=== PATIENT | female | born 1980 | race Caucasian/White ===

== ENCOUNTER 2020-04-12 10:12 | Outpatient (REF) | payer OTHER, SELFPAY | END 2020-04-12 10:13 | disposition home or self-care (01) | LOC: HO.LAB 10:12 | PROVIDERS: Visit Provider Obstetrics & Gynecology | DX: N92.0 Excessive and frequent menstruation with regular cycle (principal) | CPT/HCPCS: 58100; 88305 ==

== ENCOUNTER → 2020-05-02 15:12 | Outpatient (BNVA) | payer OTHER, SELFPAY | PROVIDERS: Visit Provider Obstetrics & Gynecology | DX: Z76.89 Persons encountering health services in other specified circumstances (principal) ==

== ENCOUNTER 2020-05-15 15:15 | Outpatient (REF) | payer OTHER, SELFPAY ==
--- NOTE | 2020-05-15 15:21 | XR_ITS ---
EXAMINATION: XR SACRUM AND COCCYX CLINICAL INFORMATION: Sacrococcygeal disorder COMPARISON: None TECHNIQUE: 2 views of the sacrum and 2 views of the coccyx were obtained. FINDINGS: Bone alignment is normal. No fracture or dislocation is seen. The sacroiliac joints are normal. There are surgical clips in the pelvis. XR/XR sacrum coccyx min 2V IMPRESSION: Unremarkable examination.
[2020-05-15 16:40] LABS: MANUAL DIFF FLAG NO
[2020-05-15 16:44] LABS: Basophils Percent Auto 0.5 % (0-2); Eosinophils Absolute Auto 0.2 X10*3/uL (0.0-0.4); Hemoglobin 14.1 g/dl (12.0-16.0); Imm Gran Abs Auto 0.03 X10*3/uL (0.00-0.03); Imm Gran Pct Auto 0.4 % (0.0-0.4); Lymphocytes Percent Auto 39.5 % (20-40); Mean Corpuscular HGB Conc 33.6 g/dl (31.0-35.0); Mean Corpuscular Hemoglobin 31.5 pg (27.0-33.0); Mean Corpuscular Volume 93.8 fL (80-98); Mean Platelet Volume 10.9 fL (9.4-12.3); Monocytes Absolute Auto 0.5 X10*3/uL (0.1-1.2); Monocytes Percent Auto 6.2 % (2-11); Neutrophils Absolute Auto 3.9 X10*3/uL (2.0-8.3); Neutrophils Percent Auto 51.4 % (45-73); Platelet Count 217 X10*3/uL (160-400); Red Blood Count 4.48 X10*6/uL (4.20-5.50); Red Cell Distribution Width 12.7 % (11.0-16.0); White Blood Count 7.6 X10*3/uL (4.8-10.8)
[2020-05-15 17:13] LABS: Anion Gap 12 (12-20); Blood Urea Nitrogen 9 mg/dL (9-16); Calcium 8.7 mg/dL (8.4-10.2); Carbon Dioxide 30 mmol/L (22-29); Chloride 100 mmol/L (96-108); Cholesterol 171 mg/dL; Estimated Glomerular Filt Rate > 60; Glucose Fasting 94 mg/dL (60-99); HDL Cholesterol 79 mg/dL; LDL Cholesterol Calculated 78 mg/dl; Potassium 4.4 mmol/l (3.3-5.1); Sodium 138 mmol/L (135-145); Triglycerides 70 mg/dL
[2020-05-15 17:33] LABS: TSH reflex Free T4 3.75 mIU/mL (0.32-4.0)
== END 2020-05-15 15:16 | disposition home or self-care (01) ==
LOC: HO.HMGCX 15:15
PROVIDERS: PCP Internal Medicine; Visit Provider Internal Medicine
DX: Z00.01 Encounter for general adult medical examination with abnormal findings (principal); R94.5 Abnormal results of liver function studies; R03.0 Elevated blood-pressure reading, without diagnosis of hypertension; M53.3 Sacrococcygeal disorders, not elsewhere classified
CPT/HCPCS: 36415; 72220; 80048; 80061; 84443; 85025

== ENCOUNTER 2020-05-29 13:16 | Outpatient (REF) | payer OTHER, SELFPAY ==
--- NOTE | 2020-05-29 13:24 | US_ITS ---
EXAMINATION: US PELVIS COMPLETE CLINICAL INFORMATION: Ovarian cyst, menorrhagia. COMPARISON: Ultrasound pelvis 11/22/2019. TECHNIQUE: Transabdominal and transvaginal ultrasound pelvis is performed. FINDINGS: The uterus is anteverted measuring 6.1 cm in length, 3.8 cm in AP and 4.9 cm in transverse dimension. Endometrial thickness is 0.8 cm. There is a hypoechoic lesion in the right body of the uterus measuring 1.4 x 1.0 x 1.3 cm. Previously it measured 1.5 x 1.3 x 1.5 cm. No additional lesions seen. Right ovary measures 2.4 x 1.5 x 1.6 cm and volume 3.0 mL. Previously it measured 3.1 x 2.4 x 2.1 cm and volume 8.2 mL. Left ovary measures 2.9 x 2.2 x 2.2 cm and volume 7.4 mL. There is a simple cyst measuring 2.5 x 1.7 x 1.8 cm. There is no free fluid in the cul-de-sac. US/US pelvic complete IMPRESSION: Simple cyst left ovary. Stable solitary uterine fibroid. Right ovary is unremarkable.
--- NOTE | 2020-05-29 13:24 | US_ITS ---
EXAMINATION: US PELVIS COMPLETE CLINICAL INFORMATION: Ovarian cyst, menorrhagia. COMPARISON: Ultrasound pelvis 11/22/2019. TECHNIQUE: Transabdominal and transvaginal ultrasound pelvis is performed. FINDINGS: The uterus is anteverted measuring 6.1 cm in length, 3.8 cm in AP and 4.9 cm in transverse dimension. Endometrial thickness is 0.8 cm. There is a hypoechoic lesion in the right body of the uterus measuring 1.4 x 1.0 x 1.3 cm. Previously it measured 1.5 x 1.3 x 1.5 cm. No additional lesions seen. Right ovary measures 2.4 x 1.5 x 1.6 cm and volume 3.0 mL. Previously it measured 3.1 x 2.4 x 2.1 cm and volume 8.2 mL. Left ovary measures 2.9 x 2.2 x 2.2 cm and volume 7.4 mL. There is a simple cyst measuring 2.5 x 1.7 x 1.8 cm. There is no free fluid in the cul-de-sac. US/US transvaginal IMPRESSION: Simple cyst left ovary. Stable solitary uterine fibroid. Right ovary is unremarkable.
== END 2020-05-29 13:17 | disposition home or self-care (01) ==
LOC: HO.US 13:16
PROVIDERS: Visit Provider Obstetrics & Gynecology
DX: N83.299 Other ovarian cyst, unspecified side (principal); D25.0 Submucous leiomyoma of uterus
CPT/HCPCS: 76830; 76856

== ENCOUNTER 2020-06-05 13:35 | Outpatient (REF) | payer OTHER, SELFPAY ==
[2020-06-05 17:40] LABS: Valproate < 2.0 mcg/mL (50.0-100.0)
[2020-06-09 00:42] LABS: Lamotrigine Lamictal 12.9 mcg/mL (4.0-18.0)
== END 2020-06-05 13:36 | disposition home or self-care (01) ==
LOC: HO.HMGCLDS 13:35
PROVIDERS: PCP Internal Medicine; Visit Provider Psychiatry & Neurology Neurology
DX: G40.019 Localization-related (focal) (partial) idiopathic epilepsy and epileptic syndromes with seizures of localized onset, intractable, without status epilepticus (principal)
CPT/HCPCS: 36415; 80164; 80175; 87522

== ENCOUNTER → 2020-06-12 11:05 | Outpatient (BNVA) | payer OTHER, SELFPAY | PROVIDERS: PCP Internal Medicine; Visit Provider Obstetrics & Gynecology ==

== ENCOUNTER → 2020-07-23 10:39 | Outpatient (BNVA) | payer OTHER, SELFPAY | PROVIDERS: PCP Internal Medicine; Visit Provider Nurse Practitioner ==

== ENCOUNTER → 2020-08-06 15:55 | Outpatient (BNVA) | payer OTHER, SELFPAY | PROVIDERS: PCP Internal Medicine; Visit Provider Internal Medicine | DX: K73.2 Chronic active hepatitis, not elsewhere classified (principal); R76.8 Other specified abnormal immunological findings in serum | CPT/HCPCS: 99212 ==

== ENCOUNTER 2020-09-27 12:34 | Outpatient (REF) | payer OTHER, SELFPAY ==
[2020-09-27 14:03] LABS: Ferritin 76 ng/mL (10-250)
[2020-09-28 04:23] LABS: HIV AB/AG Nonreactive (Nonreactive); HIV Num 1 0.06 S/CO (0.00-0.99)
[2020-09-28 04:29] LABS: HBc Num1 0.09 S/CO (0.00-0.79); HBsAGNum1 0.21 S/CO (0.00-0.99); Hepatitis B Core Antibody Nonreactive (Nonreactive); Hepatitis B Surface Antigen Negative (Negative); ~Hepatitis B Surface Antibody NONREACTIVE (Nonreactive)
[2020-09-28 04:32] LABS: Hepatitis A Antibody IgG REACTIVE (Nonreactive); ~Hepatitis A Antibody IgG 10.19 S/CO (0.00-0.99)
[2020-09-28 04:43] LABS: Hepatitis A Antibody IgM 0.16 Index (0-0.79); ~Hepatitis A Antibody IgM Nonreactive (Nonreactive)
[2020-09-28 15:06] LABS: HCV RNA PCR Qn 1580000 IU/mL (NOT DETECTED)
[2020-09-29 14:01] LABS: Anti Nuclear Antibody Screen NEGATIVE (NEGATIVE)
[2020-09-29 15:36] LABS: Mitochondrial Antibodies NEGATIVE (NEGATIVE)
[2020-09-29 16:47] LABS: Hepatitis B Viral DNA Qn - cp <1.00 NOT DETECTED Log IU/mL (NOT DETECTED); Hepatitis B Viral DNA Qn-IU/mL <10 NOT DETECTED IU/mL (NOT DETECTED)
[2020-10-03 12:44] LABS: Smooth Muscle Antibody <20 U (<20)
[2020-10-03 16:26] LABS: HCV Genotype LiPA 1a
[2020-10-09 16:03] LABS: FIB-ALT 34 U/L (6-29); FIB-Alpha-2-Macroglobulin 295 mg/dL (106-279); FIB-Apolipoprotein A1 217 mg/dL (101-198); FIB-GGT 64 U/L (3-55); FIB-Haptoglobin 153 mg/dL (43-212); FIB-Total Bilirubin 0.3 mg/dL (0.2-1.2); Liver Fibrosis Score 0.12; Liver Fibrosis Stage F0; Nec Inflam Act Grade A0; Nec Inflam Act Score 0.14
== END 2020-09-27 12:35 | disposition home or self-care (01) ==
LOC: HO.LAB 12:34
PROVIDERS: Internal Medicine; PCP Internal Medicine; Visit Provider Nurse Practitioner
DX: R76.8 Other specified abnormal immunological findings in serum (principal); K73.2 Chronic active hepatitis, not elsewhere classified
CPT/HCPCS: 36415; 81596; 82105; 82728; 86038; 86039; 86255; 86256; 86704; 86706; 86708; 86709; 87340; 87389; 87517; 87902

== ENCOUNTER → 2020-10-08 15:03 | Outpatient (BNVA) | payer OTHER, SELFPAY | PROVIDERS: Visit Provider Internal Medicine ==

== ENCOUNTER → 2020-11-20 14:22 | Outpatient (BNVA) | payer OTHER, SELFPAY | PROVIDERS: Visit Provider Internal Medicine | DX: K73.2 Chronic active hepatitis, not elsewhere classified (principal) | CPT/HCPCS: 99212 ==

== ENCOUNTER 2021-11-20 11:11 | Outpatient (REF) | payer OTHER, SELFPAY ==
[2021-11-20 11:48] LABS: MANUAL DIFF FLAG NO
[2021-11-20 13:15] LABS: Basophils Percent Auto 0.6 % (0-2); Eosinophils Absolute Auto 0.1 X10*3/uL (0.0-0.4); Eosinophils Percent Auto 2.8 % (0-4); Hematocrit 41.8 % (37.0-47.0); Hemoglobin 13.7 g/dl (12.0-16.0); Imm Gran Abs Auto 0.01 X10*3/uL (0.00-0.03); Imm Gran Pct Auto 0.2 % (0.0-0.4); Lymphocytes Absolute Auto 1.9 X10*3/uL (1.2-4.9); Lymphocytes Percent Auto 36.9 % (20-40); Mean Corpuscular HGB Conc 32.8 g/dl (31.0-35.0); Mean Corpuscular Hemoglobin 30.6 pg (27.0-33.0); Mean Corpuscular Volume 93.5 fL (80.0-98.0); Mean Platelet Volume 10.6 fL (9.4-12.3); Monocytes Absolute Auto 0.5 X10*3/uL (0.1-1.2); Monocytes Percent Auto 10.4 % (2-11); Neutrophils Absolute Auto 2.5 x10*3/uL (2.0-8.3); Neutrophils Percent Auto 49.1 % (45-73); Platelet Count 199 X10*3/uL (160-400); Red Blood Count 4.47 X10*6/uL (4.20-5.50); Red Cell Distribution Width 14.2 % (11.0-16.0)
[2021-11-20 13:23] LABS: Prothrombin Time 11.2 SEC (10.0-13.1)
[2021-11-20 13:35] LABS: Alanine Aminotransferase 74 U/L (0-31); Albumin Level 3.5 g/dL (3.5-5.0); Alkaline Phosphatase 111 U/L (39-117); Anion Gap 12 (12-20); Aspartate Amino Transferase 64 U/L (5-31); Bilirubin Direct 0.2 mg/dL (0.0-0.5); Bilirubin Total 0.4 mg/dL (0.0-1.0); Blood Urea Nitrogen 11 mg/dL (9-16); Calcium 8.2 mg/dL (8.4-10.2); Carbon Dioxide 32 mmol/L (22-29); Chloride 102 mmol/L (96-108); Estimated Glomerular Filt Rate > 60; Glucose Random 123 mg/dL (60-115); Potassium 3.9 mmol/L (3.3-5.1); Sodium 142 mmol/L (135-145); Total Protein 6.9 g/dL (6.5-8.0)
[2021-11-21 08:59] LABS: HIV AB/AG Nonreactive (Nonreactive); HIV Num 1 0.06 S/CO (0.00-0.99)
[2021-11-22 14:12] LABS: HCV RNA PCR Qn 5180000 IU/mL (NOT DETECTED); HCV RNA PCR Qn 6.71 Log IU/mL (NOT DETECTED)
[2021-11-27 19:16] LABS: FIB-ALT 61 U/L (6-29); FIB-Alpha-2-Macroglobulin 288 mg/dL (106-279); FIB-Apolipoprotein A1 186 mg/dL (101-198); FIB-GGT 88 U/L (3-55); FIB-Haptoglobin 123 mg/dL (43-212); FIB-Total Bilirubin 0.3 mg/dL (0.2-1.2); Liver Fibrosis Stage F0; Nec Inflam Act Grade A1; Nec Inflam Act Score 0.33
== END 2021-11-20 11:12 | disposition home or self-care (01) ==
LOC: HO.LAB 11:11
PROVIDERS: PCP Internal Medicine; Visit Provider Internal Medicine
DX: R76.8 Other specified abnormal immunological findings in serum (principal); Z79.01 Long term (current) use of anticoagulants
CPT/HCPCS: 36415; 80048; 80076; 81596; 85025; 85610; 87389; 87522; 87902

== ENCOUNTER → 2021-12-06 13:20 | Outpatient (BNVA) | payer OTHER, SELFPAY | PROVIDERS: Visit Provider Internal Medicine | DX: B19.20 Unspecified viral hepatitis C without hepatic coma (principal) | CPT/HCPCS: 99212 ==

== ENCOUNTER 2021-12-09 08:22 | Outpatient (REF) | payer OTHER, SELFPAY | END 2021-12-09 08:23 | disposition home or self-care (01) | LOC: HO.HOSX 08:22 | PROVIDERS: Visit Provider Physician Assistant | DX: Z13.89 Encounter for screening for other disorder (principal) ==

== ENCOUNTER 2021-12-27 08:22 | Outpatient (REF) | payer OTHER, SELFPAY ==
--- NOTE | ~2021-12-27 | XR_ITS ---
EXAMINATION: RIGHT KNEE AND AP BILATERAL KNEE STANDING. CLINICAL INFORMATION: Right knee pain COMPARISON: None TECHNIQUE: AP bilateral knee standing. Right knee 2 views. FINDINGS: AP bilateral knee: There is a mild reduction in the medial and lateral compartment joint space both knees. No fracture, dislocation or loose body seen. No bony erosive changes. Right knee: There is mild reduction the patellofemoral compartment joint space with periarticular spurring. No abnormal joint effusion seen. The soft tissues are normal. XR/XR knee RT 2V IMPRESSION: Loss of tricompartment joint space with periarticular spurring right knee. No abnormal joint effusion seen. Mild degenerative changes medial compartment left knee.
--- NOTE | ~2021-12-27 | XR_ITS ---
EXAMINATION: RIGHT KNEE AND AP BILATERAL KNEE STANDING. CLINICAL INFORMATION: Right knee pain COMPARISON: None TECHNIQUE: AP bilateral knee standing. Right knee 2 views. FINDINGS: AP bilateral knee: There is a mild reduction in the medial and lateral compartment joint space both knees. No fracture, dislocation or loose body seen. No bony erosive changes. Right knee: There is mild reduction the patellofemoral compartment joint space with periarticular spurring. No abnormal joint effusion seen. The soft tissues are normal. XR/XR knee standing BI IMPRESSION: Loss of tricompartment joint space with periarticular spurring right knee. No abnormal joint effusion seen. Mild degenerative changes medial compartment left knee.
== END 2021-12-27 08:23 | disposition home or self-care (01) ==
LOC: HO.HOSX 08:22
PROVIDERS: Visit Provider Physician Assistant
DX: M17.11 Unilateral primary osteoarthritis, right knee (principal); M25.562 Pain in left knee
CPT/HCPCS: 20610; 73560; 73565; 99202; J1040

== ENCOUNTER 2022-01-22 13:00 | Outpatient (REF) | payer OTHER, SELFPAY ==
--- NOTE | ~2022-01-22 | MR_ITS ---
EXAMINATION: MR KNEE WITHOUT CONTRAST, RIGHT CLINICAL INFORMATION: Osteoarthritis. Patient reports pain and swelling. COMPARISON: X-ray of the right knee December 2021. MRI of the right knee February 2018. TECHNIQUE: MRI of the knee without contrast was performed using routine sequences on a high-field scanner. FINDINGS: MENISCI: Medial Meniscus: There is a linear oblique focus of increased signal in the posterior horn which appears to extend to the free edge on a single sagittal image 8 series 3. This was not present previously. Findings are suspicious but not definitive for tear. Lateral Meniscus: Intact LIGAMENTS: Cruciate: Cruciate ligaments intact. Minimal enthesopathic cystic change with some reactive edema in the tibial spines likely without clinical significance. Collateral: Intact EXTENSOR MECHANISM: Intact ARTICULAR CARTILAGE/BONE: Patellofemoral Compartment: There is nonuniform up to high-grade cartilage loss involving much of the lateral facet in the distal portion of the medial facet. There are marginal osteophytes and subchondral cysts with some reactive edema. There is additional scattered cartilage heterogeneity throughout the trochlear cartilage with some cartilage loss and marginal osteophytes. Overall findings indicative of qpqi-ii-adumsxhu patellofemoral arthrosis, unchanged. Medial Compartment: There is nonuniform up to high-grade cartilage loss involving most of the weightbearing portion of the femoral articular cartilage and scattered throughout the tibial articular cartilage. There is some reactive edema and marginal osteophytes. Findings indicative of dtit-yd-zwtejjlf arthrosis which is new compared to prior. Lateral Compartment: There are marginal osteophytes. There are scattered areas of at least partial-thickness cartilage loss and cartilage heterogeneity involving primarily the femoral articular cartilage, also involving several areas of the tibial articular cartilage. Overall findings indicative of mild arthrosis but slightly progressed compared to prior. JOINT FLUID AND BURSAE: There is a mild joint effusion and synovitis. Focal area of intermediate to low signal measuring approximately 7 mm in the suprapatellar recess and compatible with a focal area of synovitis or loose body. MR/MR knee RT wo con IMPRESSION: Osteoarthritis which has progressed compared with the prior MRI examination performed February 2018. Xcms-ru-bavkfxus osteoarthritis in the medial compartment with only minimal arthrosis noted on my review of the prior examination. Slight progression of arthrosis in the lateral compartment. Stable vlvw-cb-ugvuhvpt arthrosis of the patellofemoral compartment. Mild joint effusion and synovitis with possible loose body versus nodular-appearing synovitis in the suprapatellar recess. Possible tear of the posterior horn of the medial meniscus.
== END 2022-01-22 13:01 | disposition home or self-care (01) ==
LOC: HO.MRI 13:00
PROVIDERS: Visit Provider Physician Assistant
DX: M17.11 Unilateral primary osteoarthritis, right knee (principal)
CPT/HCPCS: 73721

== ENCOUNTER 2022-03-10 12:13 | Outpatient (REF) | payer OTHER, SELFPAY ==
[2022-03-12 14:17] LABS: HCV RNA PCR Qn <1.18 NOT DETECTED Log IU/mL (NOT DETECTED); HCV RNA PCR Qn <15 NOT DETECTED IU/mL (NOT DETECTED)
== END 2022-03-10 12:14 | disposition home or self-care (01) ==
LOC: HO.LAB 12:13
PROVIDERS: PCP Internal Medicine; Visit Provider Internal Medicine
DX: M17.11 Unilateral primary osteoarthritis, right knee (principal); R76.8 Other specified abnormal immunological findings in serum; B19.20 Unspecified viral hepatitis C without hepatic coma
CPT/HCPCS: 36415; 87902; 99212

== ENCOUNTER → 2022-03-18 13:30 | Outpatient (BNVA) | payer OTHER, SELFPAY | PROVIDERS: PCP Internal Medicine; Visit Provider Internal Medicine | DX: B19.20 Unspecified viral hepatitis C without hepatic coma (principal) | CPT/HCPCS: 99212 ==

== ENCOUNTER 2023-06-19 09:05 | Outpatient (AMB) | payer OTHER, SELFPAY ==
--- NOTE | 2023-06-19 09:28 | A.OFFVIS_ITS ---
Intake Vital Signs 06/19/23 09:33 Height 5 ft 6 in Weight 184 lb BMI 29.7 Intake Visit Reasons: OV-Sprain of right knee Intake Note: Susan a 41 year old female presents today for a follow up of right knee pain. Patient reports her knee is constantly twisting and giving out knee. Shooting pain radiating down her leg and excruciating pain in the calf. Finds little to no relief Aleve, Tylenol, and BC powder. Allergies tramadol [TRAMADOL] Allergy (Severe, Verified 06/19/23 09:33) SEIZURES, epilepsy Medication List - Last Reconciled 06/19/23 by Jeronimo Joseph PA-C buprenorphine ER (Sublocade) mg subcut clonazepam 0.5 mg PO QID flu vacc [id number] 6mos up(PF) mL IM lamotrigine 150 mg PO BID omeprazole 20 mg PO DAILY 90 days trazodone 150 mg PO BEDTIME zolpidem 5 mg PO BEDTIME PRN HPI OV-Sprain of right knee HPI Details 43-year-old female who returns to the [facility] today for a follow-up of right knee pain. She states she has shooting pain in her knee which radiates down to her leg as well as excruciating pain in her calf. She also c/o her knee constantly twisting and giving out. She finds minimal relief with Aleve, Tylenol and BC powder. [facility] Medical History Coccyx pain Elevated blood pressure reading Encounter for routine adult physical exam with abnormal findings Epilepsy Hepatitis C Hepatitis C antibody positive in blood Iron deficiency LFT elevation Tobacco abuse Surgical History Hx of dilation and curettage Hx of tubal ligation Hx of craniotomy Family History Father Heart attack Brother Testicular cancer Mother No problems noted. Paternal Aunt Lung cancer Bladder cancer Family/Other Brain cancer Stroke Social History Housing: Apartment Alcohol intake: former Year quit: 2020 Patient Tobacco Use Status: Former Tobacco user Cigarette Packs Per Day: 1 Cigarettes Per Day: 6 e-Cigarette/Vaping Use: Never Used service: No Current occupational status: unemployed Sexual orientation: Straight/Heterosexual Gender identity: Female Cognitive needs: No Hearing needs: No Vision needs: No Review of Systems Const All systems reviewed & are unremarkable except as noted in HPI and below Physical Exam Vital Signs: BMI result Body Mass Index 29.7 Extrem Other: Right knee: Skin intact, no erythema or joint effusion. Tenderness along the medial or lateral or medial and lateral joint line. Full ROM with crepitus. Negative Bonnie?s. No ligamentous laxity. NVI. Office Procedures Joint Injection/Drain Joint Injection/Drain Primary Site: right knee Prep: site was prepped using aseptic technique, ethochloride spray was applied and injection warnings given Injected: 80 mg of, DepoMedrol, with 8 mL of, 1% plain lidocaine and in the carmen nt Approach Used: anterolateral Procedure: The patient tolerated the procedure well and there was some relief with the local anesthesia Coding 23723 - Glenohumeral/Tronchanteric Bursa/Intraarticular Procedure code (CPT) selection complete Assessment & Plan Assessment & Plan (1) Patellofemoral arthritis of right knee: Code(s): M17.11 - Unilateral primary osteoarthritis, right knee Plan We discussed options today which include steroid injection. They did consent to move forward with the right knee injection, which was tolerated well. I recommended rest, ice and elevation and OTC anti-inflammatories PRN for discomfort. If symptoms persist or worsens over the next 6-8 weeks, patient will contact the office, otherwise follow-up as needed. Patient Instructions: Scribed for Jeronimo Joseph PA-C, by Jose Juan Brizuela medical laboratory assistant, on 06/19/2023 at 9:45 AM [facility]. Jeronimo Kramer PA-C, have personally reviewed and agree with the information entered by the scribe. Coding Level of Care Code Est Pt Level 3 (57896) Diagnoses Patellofemoral arthritis of right knee M17.11 CPT Codes Coding - Joint 7: 45200 - Glenohumeral/Tronchanteric Bursa/Intraarticular ([id number])
[2023-06-19 09:33] VITALS: BMI 29.7
== END 2023-06-19 09:48 | disposition home or self-care (01) ==
PROVIDERS: PCP Internal Medicine; Visit Provider Physician Assistant
DX: M17.11 Unilateral primary osteoarthritis, right knee (principal)
CPT/HCPCS: 20610; 99213

== ENCOUNTER → 2023-06-19 09:06 | Outpatient (BNVA) | payer OTHER, SELFPAY | PROVIDERS: PCP Internal Medicine; Visit Provider Physician Assistant | DX: M17.11 Unilateral primary osteoarthritis, right knee (principal) | CPT/HCPCS: 20610; 99212; J1040 ==

== ENCOUNTER 2023-07-06 12:41 | Outpatient (AMB) | payer OTHER, SELFPAY ==
--- NOTE | 2023-07-06 12:47 | A.OFFVIS_ITS ---
Intake Vital Signs 07/06/23 12:52 Height 5 ft 6 in Weight 184 lb BMI 29.7 Intake Visit Reasons: OV-right knee pain-follow up Intake Note: Susan a 41 year old female presents today for a follow up of right knee pain, last injection 06/19/23. Patient reports injection helped, provided her with relief and grinding in her knee has subsided. Currently she feels a sharp shooting pain in the medial aspect of kneecap and her knee is given out. Finds no relief with Aleve and BC powder. Allergies tramadol [TRAMADOL] Allergy (Severe, Verified 07/06/23 12:51) SEIZURES, epilepsy Medication List - Last Reconciled 07/06/23 by Jeronimo Joseph PA-C buprenorphine ER (Sublocade) mg subcut clonazepam 0.5 mg PO QID flu vacc [id number] 6mos up(PF) mL IM lamotrigine 150 mg PO BID omeprazole 20 mg PO DAILY 90 days trazodone 150 mg PO BEDTIME zolpidem 5 mg PO BEDTIME PRN HPI OV-right knee pain-follow up HPI Details 43 yo female returns to the office today s/p right knee injection 06/19/23. She states she injection was helpful, she no longer recinos grinding along the lateral aspect of the knee ; however, she has worsened pain along the medial joint line and continues to have sensation of the knee giving out with walking. [facility] Medical History Coccyx pain Elevated blood pressure reading Encounter for routine adult physical exam with abnormal findings Epilepsy Hepatitis C Hepatitis C antibody positive in blood Iron deficiency LFT elevation Tobacco abuse Surgical History Hx of dilation and curettage Hx of tubal ligation Hx of craniotomy Family History Father Heart attack Brother Testicular cancer Mother No problems noted. Paternal Aunt Lung cancer Bladder cancer Family/Other Brain cancer Stroke Social History Housing: Apartment Alcohol intake: former Year quit: 2020 Patient Tobacco Use Status: Former Tobacco user Cigarette Packs Per Day: 1 Cigarettes Per Day: 6 e-Cigarette/Vaping Use: Never Used service: No Current occupational status: unemployed Sexual orientation: Straight/Heterosexual Gender identity: Female Cognitive needs: No Hearing needs: No Vision needs: No Review of Systems Const All systems reviewed & are unremarkable except as noted in HPI and below Physical Exam Vital Signs: BMI result Body Mass Index 29.7 Extrem Other: Right knee: Skin intact, no erythema or joint effusion. Tenderness along the medial joint line. Full ROM with crepitus. Positive Bonnie?s. No ligamentous laxity. NVI. Assessment & Plan Assessment & Plan (1) Patellofemoral arthritis of right knee: Code(s): M17.11 - Unilateral primary osteoarthritis, right knee Plan: I discussed the extent of the injury to the patient and options available which include surgical intervention. I explained the procedure in detail along with the length of recovery and rehab course. I explained the risk, benefits and alternatives. Risk including, but not limited to infection, blood clots, bleeding, ongoing pain and stiffness. I also explained with PF OA the chances of arthritis flares int he future. I answered all their questions and with their understanding they have consented to move forward with right knee arthroscopy with Dr Tamez. The patient will be booked accordingly. Coding Level of Care Code Est Pt Level 3 (89742) Diagnoses Patellofemoral arthritis of right knee M17.11
[2023-07-06 12:52] VITALS: BMI 29.7
== END 2023-07-06 13:17 | disposition home or self-care (01) ==
PROVIDERS: PCP Internal Medicine; Visit Provider Physician Assistant
DX: M17.11 Unilateral primary osteoarthritis, right knee (principal)
CPT/HCPCS: 99213

== ENCOUNTER → 2023-07-06 12:41 | Outpatient (BNVA) | payer OTHER, SELFPAY | PROVIDERS: PCP Internal Medicine; Visit Provider Physician Assistant | DX: M17.11 Unilateral primary osteoarthritis, right knee (principal) | CPT/HCPCS: 99212 ==

== ENCOUNTER 2023-07-21 11:37 | Outpatient (REF) | payer OTHER, SELFPAY ==
[2023-07-21 13:50] LABS: Hematocrit 39.7 % (37.0-47.0); Hemoglobin 12.9 g/dl (12.0-16.0); Mean Corpuscular HGB Conc 32.5 g/dl (31.0-35.0); Mean Corpuscular Hemoglobin 30.4 pg (27.0-33.0); Mean Corpuscular Volume 93.6 fL (80.0-98.0); Mean Platelet Volume 10.7 fL (9.4-12.3); Platelet Count 287 X10*3/uL (160-400); Red Blood Count 4.24 X10*6/uL (4.20-5.50); Red Cell Distribution Width 13.8 % (11.0-16.0); White Blood Count 7.3 X10*3/uL (4.8-10.8)
[2023-07-21 14:41] LABS: HCG Quantitative < 2 mIU/mL; TSH reflex Free T4 1.98 uIU/mL (0.32-4.0)
[2023-07-23 03:14] LABS: Prolactin 6.2 ng/mL
== END 2023-07-21 11:38 | disposition home or self-care (01) ==
LOC: HO.LAB 11:37
PROVIDERS: PCP Internal Medicine; Visit Provider Obstetrics & Gynecology
DX: N93.9 Abnormal uterine and vaginal bleeding, unspecified (principal); Z32.02 Encounter for pregnancy test, result negative
CPT/HCPCS: 36415; 81025; 84146; 84443; 84702; 85027; 99212

== ENCOUNTER 2023-07-21 11:37 | Outpatient (AMB) | payer OTHER, SELFPAY ==
[2023-07-21 11:43] VITALS: BP 132/70; BMI 20.2
--- NOTE | 2023-07-21 11:43 | A.OFFVIS_ITS ---
Intake Vital Signs 07/21/23 11:43 07/21/23 11:48 Height 5 ft 6 in 5 ft 6 in Weight 125 lb 182 lb 15.739 oz BMI 20.2 29.5 BP 132/70 Intake Visit Reasons: irregular menses [employer] Required: No Information Interpreted: non-clinical & clinical Pick Pulling Machine Operator: Pick Pulling Machine Operator Present (Aidyn) Allergies tramadol [TRAMADOL] Allergy (Severe, Verified 07/21/23 11:52) SEIZURES, epilepsy Is last menstrual period known: No HPI HPI Comments History of Present Illness Details The patient is presenting c/o irregular bleeding associated with passage of blood clots and abdominal cramping. it started few months ago and is getting worse no other associated symptoms. Last co testing was in 11/11 was negative Last mammogram was many years ago [facility] Medical History Hepatitis C Hepatitis C antibody positive in blood Tobacco abuse Coccyx pain Encounter for routine adult physical exam with abnormal findings Elevated blood pressure reading LFT elevation Epilepsy Iron deficiency Surgical History Hx of dilation and curettage Hx of tubal ligation Hx of craniotomy Family History Father Heart attack Brother Testicular cancer Mother No problems noted. Paternal Aunt Lung cancer Bladder cancer Family/Other Brain cancer Stroke Social History Housing: Apartment Alcohol intake: former Year quit: 2020 Patient Tobacco Use Status: Former Tobacco user Cigarette Packs Per Day: 1 Cigarettes Per Day: 6 e-Cigarette/Vaping Use: Never Used service: No Current occupational status: unemployed Sexual orientation: Straight/Heterosexual Gender identity: Female Cognitive needs: No Hearing needs: No Vision needs: No Female Reproductive History Menstrual control method: permanent sterilization Total pregnancies: 1 Full term: 1 Number of Living Children: 1 Date of last pap smear: 11/03/19 (negative) Review of Systems Const All systems reviewed & are unremarkable except as noted in HPI and below Card Reports as per HPI Resp Reports as per HPI GI Reports as per HPI and Reports no additional complaints Reports as per HPI Physical Exam Vital Signs: Last Vital Signs BP 132/70 02/27/24 11:43 BMI result Body Mass Index 29.5 Const General: cooperative, healthy appearing and comfortable Chest Chest palpation & inspection: normal inspection of the chest and normal palpation of entire chest wall Breast/axilla inspection: normal inspection of the breasts and normal inspection of the axillae Breast/axilla palpation: normal palpation of the breasts, normal palpation of the axillae and no axillary lymphadenopathy Resp Effort & Inspection: normal respiratory effort Auscultation: clear to auscultation bilaterally Percussion: percussion normal Cardio Palpation: normal PMI Rate: regular rate Rhythm: regular rhythm Heart sounds: no murmurs and no rubs Peripheral pulses: Peripheral pulses 2+ throughout GI Inspection: Yes normal to inspection Palpation (GI): Soft to palpation, nontender, no guarding, not rigid and No hepatosplenomegaly present Percussion: Yes normal to percussion Auscultation: normal bowel sounds Rectal Exam - Female: deferred General: Yes bladder normal to palpation External Female Exam: No lesion Speculum Exam - Vagina: normal appearance of the vagina, normal palpation, normal vaginal discharge and not erythematous Speculum Exam - Cervix: normal appearance of the cervix and normal palpation Bimanual exam- vagina & uterus: normal bimanual exam, normal palpation, uterine size normal, bladder normal to palpation, consistency normal and normal palpation Bimanual Exam- Adnexa, other: normal adnexae, no masses and no tenderness Assessment & Plan Assessment & Plan (1) Abnormal uterine bleeding: Code(s): N93.9 - Abnormal uterine and vaginal bleeding, unspecified Plan: Screening mammogram, GC and chlamydia taken CBC, prolactin, TSH, HCG, and pelvic ultrasound ordered. Discussed with the patient the different causes of abnormal bleeding including thyroid disorders, uterine and ovarian pathology, endometrial hyperplasia, carcinoma and other potential causes. Discussed with the patient the work up including CBC (to r/o anemia), TSH, pelvic Ultrasound, endometrial biopsy to r/o endometrial pathology. All questions answered and the patient verbalized understanding. Instructed the patient to schedule an a ppointment for an endometrial biopsy in 2 weeks. Orders: Orders MM screening mammo BI Today Z12.31 - Encounter for screening mammogram for malignant neoplasm of breast Complete Blood Count no Diff Today N93.9 - Abnormal uterine and vaginal bleeding, unspecified US pelvic and transvaginal Today N93.9 - Abnormal uterine and vaginal bleeding, unspecified Prolactin Today N93.9 - Abnormal uterine and vaginal bleeding, unspecified TSH reflex Free T4 Today N93.9 - Abnormal uterine and vaginal bleeding, unspecified HCG Quantitative Today N93.9 - Abnormal uterine and vaginal bleeding, unspecified Coding Level of Care Code Est Pt Level 3 (04157) Diagnoses Abnormal uterine bleeding N93.9
[2023-07-21 11:48] VITALS: BMI 29.5
== END 2023-07-21 12:16 | disposition home or self-care (01) ==
LOC: HO.HWS 11:37
PROVIDERS: PCP Internal Medicine; Visit Provider Obstetrics & Gynecology
DX: N93.9 Abnormal uterine and vaginal bleeding, unspecified (principal); Z32.02 Encounter for pregnancy test, result negative
CPT/HCPCS: 99213

== ENCOUNTER 2023-07-21 13:31 | Outpatient (REF) | payer OTHER, SELFPAY ==
[2023-07-21 17:55] LABS: CT PCR NOT DETECTED (Not Detect.); NG PCR NOT DETECTED (Not Detect.)
== END 2023-07-21 13:32 | disposition home or self-care (01) ==
LOC: HO.LNP 13:31
PROVIDERS: Visit Provider Obstetrics & Gynecology
DX: N93.9 Abnormal uterine and vaginal bleeding, unspecified (principal); Z11.3 Encounter for screening for infections with a predominantly sexual mode of transmission
CPT/HCPCS: 0353U

== ENCOUNTER 2023-08-10 09:08 | Outpatient (AMB) | payer OTHER, SELFPAY ==
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
[2023-08-10 10:18] VITALS: BP 120/72; PULSE 68; O2SAT 97; BMI 19.7
== END 2023-08-10 12:34 | disposition home or self-care (01) ==
PROVIDERS: PCP Internal Medicine; Visit Provider Registered Nurse Emergency
DX: R63.4 Abnormal weight loss (principal)
CPT/HCPCS: 99213

== ENCOUNTER 2023-08-11 10:52 | Outpatient (REF) | payer OTHER, SELFPAY ==
--- NOTE | ~2023-08-11 | US_ITS ---
EXAM: Pelvic Ultrasound CLINICAL INDICATION: Abnormal uterine bleeding COMPARISON: Pelvic ultrasound 05/29/2020 TECHNIQUE: The pelvis was evaluated using transabdominal and transvaginal imaging. Today's examination is somewhat limited secondary to overlying bowel gas. FINDINGS: The uterus measures 8.2 x 3.5 x 5.1 cm in longitudinal by AP by transverse dimension. The endometrial stripe measures 1.2 cm. Stable 1.2 cm fundal fibroid (previously 1.4 cm). Nabothian cysts demonstrated within the cervix. The left ovary measures approximately 1.7 x 0.7 x 1.2 cm and is normal. The right ovary was not clearly visualized. There are no abnormal adnexal masses. There is no free fluid in the pelvis. US/US pelvic and transvaginal IMPRESSION: 1. Endometrial stripe measures 1.2 cm in thickness. Correlation with menstrual cycle recommended. 2. Stable 1.2 cm fundal fibroid. 3. Right ovary not clearly visualized.
== END 2023-08-11 10:53 | disposition home or self-care (01) ==
LOC: HO.US 10:52
PROVIDERS: PCP Internal Medicine; Visit Provider Obstetrics & Gynecology
DX: N93.9 Abnormal uterine and vaginal bleeding, unspecified (principal)
CPT/HCPCS: 76830; 76856

== ENCOUNTER 2023-08-12 08:29 | Outpatient (AMB) | payer OTHER, SELFPAY ==
[2023-08-12 08:34] VITALS: BP 122/76; PULSE 111; O2SAT 99; BMI 19.1
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
== END 2023-08-12 13:07 | disposition home or self-care (01) ==
PROVIDERS: PCP Internal Medicine; Visit Provider Internal Medicine
DX: R63.4 Abnormal weight loss (principal); B18.2 Chronic viral hepatitis C; G40.909 Epilepsy, unspecified, not intractable, without status epilepticus; F33.2 Major depressive disorder, recurrent severe without psychotic features; N93.9 Abnormal uterine and vaginal bleeding, unspecified; K21.9 Gastro-esophageal reflux disease without esophagitis; F41.1 Generalized anxiety disorder; Z72.0 Tobacco use; R79.89 Other specified abnormal findings of blood chemistry
CPT/HCPCS: 99214

== ENCOUNTER 2023-08-12 08:58 | Outpatient (REF) | payer OTHER, SELFPAY ==
[2023-08-12 11:35] LABS: MANUAL DIFF FLAG NO
[2023-08-12 11:49] LABS: Basophils Absolute Auto 0.1 X10*3/uL (0.0-0.2); Basophils Percent Auto 0.7 % (0-2); Eosinophils Absolute Auto 0.1 X10*3/uL (0.0-0.4); Eosinophils Percent Auto 1.8 % (0-4); Hematocrit 40.5 % (37.0-47.0); Hemoglobin 13.6 g/dl (12.0-16.0); Imm Gran Abs Auto 0.02 X10*3/uL (0.00-0.03); Imm Gran Pct Auto 0.3 % (0.0-0.4); Lymphocytes Absolute Auto 2.4 X10*3/uL (1.2-4.9); Lymphocytes Percent Auto 33.2 % (20-40); Mean Corpuscular HGB Conc 33.6 g/dl (31.0-35.0); Mean Corpuscular Hemoglobin 30.5 pg (27.0-33.0); Mean Corpuscular Volume 90.8 fL (80.0-98.0); Mean Platelet Volume 11.8 fL (9.4-12.3); Monocytes Absolute Auto 0.6 X10*3/uL (0.1-1.2); Monocytes Percent Auto 7.5 % (2-11); Neutrophils Absolute Auto 4.2 x10*3/uL (2.0-8.3); Neutrophils Percent Auto 56.5 % (45-73); Platelet Count 237 X10*3/uL (160-400); Red Blood Count 4.46 X10*6/uL (4.20-5.50); Red Cell Distribution Width 13.4 % (11.0-16.0); White Blood Count 7.4 X10*3/uL (4.8-10.8)
[2023-08-12 12:27] LABS: Alanine Aminotransferase 12 U/L (0-31); Albumin Level 4.2 g/dL (3.5-5.0); Alkaline Phosphatase 60 U/L (39-117); Anion Gap 13 (12-20); Aspartate Amino Transferase 16 U/L (5-31); Bilirubin Total 0.4 mg/dL (0.0-1.0); Blood Urea Nitrogen 13 mg/dL (9-16); Calcium 9.1 mg/dL (8.4-10.2); Carbon Dioxide 25 mmol/L (22-29); Chloride 105 mmol/L (96-108); Estimated Glomerular Filt Rate > 60; Glucose Random 144 mg/dL (60-115); Potassium 3.8 mmol/L (3.3-5.1); Sodium 139 mmol/L (135-145); Total Protein 7.1 g/dL (6.5-8.0)
[2023-08-12 12:44] LABS: TSH reflex Free T4 2.36 uIU/mL (0.32-4.0)
[2023-08-15 07:28] LABS: HCV Log PCR <1.18 NOT DETECTED Log IU/mL (NOT DETECTED); HepC Viral Load <15 NOT DETECTED IU/mL (NOT DETECTED)
[2023-08-17 15:54] LABS: LDL Cholesterol Direct 87 mg/dL (<100)
[2023-08-21 18:18] LABS: FIB-ALT 9 U/L (6-29); FIB-Alpha-2-Macroglobulin 345 mg/dL (106-279); FIB-Apolipoprotein A1 185 mg/dL (101-198); FIB-GGT 10 U/L (3-55); FIB-Haptoglobin 133 mg/dL (43-212); FIB-Total Bilirubin 0.4 mg/dL (0.2-1.2); Liver Fibrosis Score 0.15; Liver Fibrosis Stage F0; Nec Inflam Act Grade A0; Nec Inflam Act Score 0.02
== END 2023-08-12 08:59 | disposition home or self-care (01) ==
LOC: HO.HMGCLDS 08:58
PROVIDERS: PCP Internal Medicine; Visit Provider Internal Medicine
DX: B19.20 Unspecified viral hepatitis C without hepatic coma (principal); R63.4 Abnormal weight loss; N93.9 Abnormal uterine and vaginal bleeding, unspecified; K21.9 Gastro-esophageal reflux disease without esophagitis; G40.909 Epilepsy, unspecified, not intractable, without status epilepticus; F33.2 Major depressive disorder, recurrent severe without psychotic features; F41.9 Anxiety disorder, unspecified; R79.89 Other specified abnormal findings of blood chemistry; Z72.0 Tobacco use
CPT/HCPCS: 36415; 80053; 81596; 83721; 84443; 85025; 87522

== ENCOUNTER 2023-08-13 09:06 | Outpatient (AMB) | payer OTHER, SELFPAY ==
--- NOTE | 2023-08-13 09:09 | A.OFFVIS_ITS ---
Intake Intake Visit Reasons: Pre-Rt Knee 08/19/23 NE Intake Note: Susan is a 43 year old female who presents today for a pre op appointment for her right knee 08/19/23 NE. Allergies tramadol [TRAMADOL] Allergy (Severe, Verified 08/13/23 09:10) SEIZURES, epilepsy HPI Pre-Rt Knee 08/19/23 NE HPI Details 43-year-old female who presents in the [facility] today for her preoperative history and physical exam prior to a right knee arthroscopy to be performed on 08/19/[address] Kristopher Tamez. Patient denies any complications with anesthesia. Patient reports having oral surgery a few weeks ago. Patient has an allergy history, as follows: -Tramadol; seizures, epilepsy Patient is currently taking, as follows: -Buprenorphine ER subcut -Clonazepam 0.5 mg PO QID -Eszopiclone 2 mg PO bedtime -Lamotrigine 150 mg PO BID Patient has a medical history, as follows: -GERD -History of Hep C -Seizure disorder; Epilepsy -Iron dificiency -Depression -Anxiety disorder -History of Hep B -Complex ovarian cyst -LFT elevated -Menorrhagia -Tobacco abuse Patient has a surgical history, as follows: -Hx of dilation and curettage -Hx of tubal ligation -Hx of craniotomy Patient has a social history, as follows: -Former alcohol user; quit in 2020 -Former tobacco user; 1 pack per day [facility] Medical History Hepatitis C Hepatitis C antibody positive in blood Tobacco abuse Coccyx pain Encounter for routine adult physical exam with abnormal findings Elevated blood pressure reading LFT elevation Epilepsy Iron deficiency Surgical History Hx of dilation and curettage Hx of tubal ligation Hx of craniotomy Family History Father Heart attack Brother Testicular cancer Mother No problems noted. Paternal Aunt Lung cancer Bladder cancer Family/Other Brain cancer Stroke Social History Housing: Apartment Alcohol intake: former Year quit: 2020 Patient Tobacco Use Status: Former Tobacco user Cigarette Packs Per Day: 1 Cigarettes Per Day: 6 e-Cigarette/Vaping Use: Never Used service: No Current occupational status: unemployed Sexual orientation: Straight/Heterosexual Gender identity: Female Cognitive needs: No Hearing needs: No Vision needs: No Review of Systems Const All systems reviewed & are unremarkable except as noted in HPI and below Physical Exam Const General: cooperative, healthy appearing, comfortable, no acute distress, well developed, alert and awake Orientation/consciousness: patient oriented x3 HEENT Head: Yes normal to inspection, Yes normocephalic and Yes atraumatic Eyes General: appearance normal, both eyes and all related structures Neck Neck: Yes normal visual inspection and Yes no lymphadenopathy Resp Effort & Inspection: normal respiratory effort and able to speak in complete sentences Cardio Rate: regular rate Peripheral pulses: Peripheral pulses 2+ throughout GI Inspection: Yes normal to inspection Palpation (GI): Soft to palpation Skin General skin exam: no rashes or lesions noted Neuro General: patient oriented x3 Extrem Other: Right knee: Skin intact, no erythema or joint effusion. Tenderness along the medial joint line. Full ROM with crepitus. Positive Bonnie?s. No ligamentous laxity. NVI. Psych Mental Status: mental status grossly normal Assessment & Plan Assessment & Plan (1) Patellofemoral arthritis of right knee: Code(s): M17.11 - Unilateral primary osteoarthritis, right knee Plan: Mother Carmel [phone] Plan Ms. Cartagena is a 43-year-old female who presents in the office today for her preoperative history and physical exam prior to a right knee arthroscopy to be performed on 08/19/[address] Kristopher Tamez. Patient denies any complications with anesthesia. Patient reports having oral surgery a few weeks ago. Patient has an allergy history, as follows: -Tramadol; seizures, epilepsy Patient is currently taking, as follows: -Buprenorphine ER subcut -Clonazepam 0.5 mg PO QID -Eszopiclone 2 mg PO bedtime -Lamotrigine 150 mg PO BID Patient has a medical history, as follows: -GERD -History of Hep C -Seizure disorder; Epilepsy -Iron dificiency -Depression -Anxiety disorder -History of Hep B -Complex ovarian cyst -LFT elevated -Menorrhagia -Tobacco abuse Patient has a surgical history, as follows: -Hx of dilation and curettage -Hx of tubal ligation -Hx of craniotomy Patient has a social history, as follows: -Former alcohol user; quit in 2020 -Former tobacco user; 1 pack per day I discussed in detail the procedure and what to expect pre and post operatively. We discussed the risks, benefits and alternatives to the surgery as well as the rehabilitation course. The risks; which include, but are not limited to infection, bleeding, nerve injury, ongoing pain, swelling, and stiffness, perioperative risk of injury to bones and soft tissues, and blood clots. I have answered all questions and with their understanding they have consented to move forward with a right knee arthroscopy to be performed on 08/19/[address] Kristopher Tamez. Follow up will be at the post operative appointment on 08/25/2023 at 11:30 am, or sooner if needed. Post operative medications was sent to the pharmacy, Hydrocodone-acetaminophen 5-325 mg (Vicodin) PO Q8H PRN, quantity 28 tabs for 7 days, while in the office today. The patient was instructed that she should obtain the prescription prior to surgery but should not consume until after the procedure; as these should only be taken for post operative pain management. Should the patient take these medications prior to surgery a refill will not be sent to the pharmacy until their scheduled refill date. Please call Carmel Cartagena, mother of the patient, after surgery. Medications: New hydrocodone-acetaminophen 5-325 mg Partial Fill upon patient request. 1 tab PO Q8H PRN 28 tabs 0RF pain 7 days Patient Instructions: Scribed by Tarsha Hilario medical oncologist, for Alia Major PA-C on 08/13/2023 at 9:15 am, EST. Coding Level of Care Code Global (91411) Diagnoses Patellofemoral arthritis of right knee M17.11
== END 2023-08-13 09:49 | disposition home or self-care (01) ==
PROVIDERS: PCP Internal Medicine; Visit Provider Physician Assistant
DX: M17.11 Unilateral primary osteoarthritis, right knee (principal)
CPT/HCPCS: 99024

== ENCOUNTER → 2023-08-13 09:06 | Outpatient (BNVA) | payer OTHER, SELFPAY | PROVIDERS: PCP Internal Medicine; Visit Provider Physician Assistant | DX: M17.11 Unilateral primary osteoarthritis, right knee (principal) | CPT/HCPCS: 99212 ==

== ENCOUNTER 2023-08-19 06:05 | Day surgery (SDC) | payer OTHER, SELFPAY ==
[2023-08-17 09:46] VITALS: BMI 19.0
[2023-08-19] VITALS (10 sets, daily range): BP systolic 107–126; BP diastolic 59–72; PULSE 66–90; RESP 15–16; TEMP 36.1–36.6; O2SAT 97–100; BMI 18.9
[2023-08-19] MEDS: Lactated Ringers 1,000 ML 50 ML IVCONT (06:35)
--- NOTE | 2023-08-19 07:29 | HO.ANESPROP2 ---
HPI - Anesthesia Eval Consult details Narrative: right knee arthroscopy PMFSH Active Problems Active Problems: All Active Problems (Updated 08/17/23 @ 09:47 by Clotilde Baig RN) Weight loss, unintentional (Acute) Abnormal uterine bleeding (Acute) GERD (gastroesophageal reflux disease) (Acute) Patellofemoral arthritis of right knee (Acute) Seizure disorder (Acute) Depression, major, severe recurrence (Acute) Anxiety disorder (Acute) Right knee sprain (Acute) Tobacco abuse counseling (Acute) Tobacco abuse (Acute) Alcoholism (Acute) Hepatitis B (Acute) Chronic active hepatitis (Acute) Abdominal discomfort (Acute) Complex ovarian cyst (Acute) Submucous myoma of uterus (Acute) Hepatitis C antibody positive in blood (Acute) Menorrhagia (Acute) Hepatitis C (Acute) Tobacco abuse (Acute) Coccyx pain (Acute) Elevated blood pressure reading (Acute) LFT elevation (Acute) Past Medical History Medical History Depression GERD (gastroesophageal reflux disease) Hepatitis C Tobacco abuse Coccyx pain Encounter for routine adult physical exam with abnormal findings Elevated blood pressure reading LFT elevation Epilepsy Iron deficiency Family History Family History Father Heart attack Brother Testicular cancer Mother No problems noted. Paternal Aunt Lung cancer Bladder cancer Family/Other Brain cancer Stroke Family history of problems with anesthesia: No Surgical History Surgical History Hx of appendectomy Hx of dilation and curettage Hx of tubal ligation Hx of craniotomy History of Problems with Anesthesia: No Social History Social History Housing: Apartment Alcohol intake: former Year quit: 2020 Patient Tobacco Use Status: Former Tobacco user Quit Date: 07/2023 Cigarette Packs Per Day: 1 Cigarettes Per Day: 6 e-Cigarette/Vaping Use: Never Used Use of substances other than those prescribed or required for medical reasons: Yes Substance Use Frequency: Occasionally Are you DNR?: No Advance Directives: No Advance Directives Information Provided: Yes service: No Current occupational status: unemployed Sexual orientation: Straight/Heterosexual Gender identity: Female Cognitive needs: No Hearing needs: No Vision needs: No Meds Allergies Allergy/AdvReac Type Severity Reaction Status Date / Time tramadol [TRAMADOL] Allergy Severe SEIZURES, Verified 08/19/23 06:11 epilepsy Active Medications: Current Medications Lactated Ringer's (Lr) 1,000 mls @ 50 mls/hr IVCONT .Q20H ERICA Last Admin: 08/19/23 06:35 Dose: 50 mls/hr Home Medications Medication Instructions Recorded Confirmed Last Taken Type lamotrigine 150 mg tablet 150 mg PO BID 04/25/20 08/17/23 Unknown History clonazepam 0.5 mg tablet 0.5 mg PO QID 07/23/20 08/17/23 Unknown History eszopiclone 2 mg tablet (Lunesta) 2 mg PO BEDTIME 07/21/23 08/17/23 Unknown History Exam Height,Weight and Vital Signs: Height 5 ft 6 in Weight 53.07 kg Last Vital Signs Temp 96.9 F 08/19/23 06:17 Pulse 77 08/19/23 06:17 Resp 15 08/19/23 06:17 BP 123/72 08/19/23 06:17 Pulse Ox 97 08/19/23 06:17 O2 Del Method Room Air 08/19/23 06:17 Airway Mallampati Class: II TM Dist: >3cm Neck ROM: Full Heart: rrr Lungs: cta Assessment and Plan Assessment Anesthesia Assessment: Anesthesia Plan Discussed and Chart Reviewed Final Anesthetic Review Family History of Problems with Anesthesia: No History of Problems with Anesthesia: No NPO: Yes ASA Class: III Final Preanesthetic Review: No Changes in Pt Med Stat, Meds/Allgs Chart Reviewed, Consent Obtained/Reviewed and Anes Risks/Benef Reviewed Patient Risk: Intermediate Procedure Risk: Low Anesthetic Plan Anesthetic Plan: GA Disposition: Standard PACU
--- NOTE | 2023-08-19 07:38 | MHC.SHP ---
Pre-Procedural Eval Section A - 24 Hr Update-Section A only Date of Service: 08/19/23 The patient is an INPATIENT: No Changes since office visit: No Cold of Flu in the past 2 weeks, No New Medical Problems, No Changes in Medication and No Patient answered all questions The patient has been examined within 24 hours of the surgical procedure. The History & Physical has been completed within 30 days and I have reviewed it.: Yes Section B - Complete if H&P > 30 days Chief Complaint: tear of medial and lateral meniscus Allergies: Allergies Allergy/AdvReac Type Severity Reaction Status Date / Time tramadol [TRAMADOL] Allergy Severe SEIZURES, Verified 08/19/23 06:11 epilepsy Plan I have reviewed the history and physical and performed a pertinent physical examination on my patient. No changes have occurred unless specified. Time Spent With Patient Time: Total time managing care of this patient today ____ minutes.
[2023-08-19] MEDS: fentaNYL citrate/PF 100 MCG/2 ML VIAL 25 MCG IVPUSH ×4 (08:45→09:00)
[2023-08-19] MEDS: oxyCODONE HCl Immed Release 5 MG TABLET PO (09:07)
--- NOTE | 2023-08-19 10:05 | P.BOP_ITS ---
Brief Operative Note Date of Service: 08/19/23 Pre-op diagnosis: right knee MMT right knee OA Post-op diagnosis: same Procedure: Partial medial meniscectomy Chondroplasty Implants: none Surgeon: Kristopher Tamez MD Anesthesia: GETA and local Was an Research And Development Manager used for this Procedure?: No Estimated blood loss (mL): 2 Tourniquet time (min): 22 IV fluids (mL): 500 Pathology: none sent Condition: stable Disposition: PACU
--- NOTE | 2023-08-19 10:10 | W.PM.OPN ---
Operative Note Operative Note Date of Service: 08/19/23 Narrative: ate of Service: 08/19/23 Pre-op diagnosis: right knee MMT right knee OA Post-op diagnosis: same Procedure: Partial medial meniscectomy Chondroplasty Implants: none Surgeon: Kristopher Tamez MD Anesthesia: GETA and local Was an Failure Analysis Technician used for this Procedure?: No Estimated blood loss (mL): 2 Tourniquet time (min): 22 IV fluids (mL): 500 Pathology: none sent Condition: stable Disposition: PACU Procedure in detail: Patient was brought to the operating room placed supine on the arthroscopic table and prepped and draped in standard sterile fashion. A time-out was called to identify proper site proper procedure proper surgeon and IV antibiotics per weight were administered. I began by exsanguinating the limb and insufflating tourniquet to 300 mm Hg. Then made a standard anterolateral stab incision. The knee was insufflated with water and 30 degree arthroscope was placed. There was grade 3-4 cartilagenous changes of the patella and trochlea ecxtending anteriomedially along the femoral condyle. THere was ostephytes anteriorly and over the anterior tibial plateau. The suprapatellar pouch and the gutters were clean. I descended into the medial compartment where I made my medial portal under direct visualization. There was a complex tear of the posterior horn of the medial meniscus. The root was intact and there was grade 2-3 changes in the tibial plateau and femoral copndyle. I used a combination of biter shaver and cautery to remove unstable portions of the meniscus. Approximately 30% meniscal volume was removed. A chondroplasty was performed with a shaver. Once I was satisfied with this the ACL was examined and found to be intact and the lateral compartment also was without the need for intervention. I then returned to the anterioor compartment and performed and patellofemoral chondroplasty of with the cautery wand. I then removed all instrumentation and closed the portals with skin glue. 25 mL of 2% Marcaine with epinephrine was injected into the joint and the surrounding soft tissues. Patient was then placed in sterile dressing extubated brought recovery room stable condition. There were no known complications.
== END 2023-08-19 10:08 | disposition home or self-care (01) ==
PROVIDERS: PCP Internal Medicine; Visit Provider Orthopaedic Surgery
PROC: (CPT 29870; principal; 2023-08-19 07:30)
DX: S83.231A Complex tear of medial meniscus, current injury, right knee, initial encounter (principal); M17.11 Unilateral primary osteoarthritis, right knee; X58.XXXA Exposure to other specified factors, initial encounter; Y93.9 Activity, unspecified; Y92.9 Unspecified place or not applicable; Y99.9 Unspecified external cause status; G40.909 Epilepsy, unspecified, not intractable, without status epilepticus; E61.1 Iron deficiency; R03.0 Elevated blood-pressure reading, without diagnosis of hypertension; K21.9 Gastro-esophageal reflux disease without esophagitis; Z86.19 Personal history of other infectious and parasitic diseases; R79.89 Other specified abnormal findings of blood chemistry; F32.A Depression, unspecified; F41.9 Anxiety disorder, unspecified; Z79.899 Other long term (current) drug therapy; Z88.5 Allergy status to narcotic agent; F10.21 Alcohol dependence, in remission; Z87.891 Personal history of nicotine dependence
CPT/HCPCS: 29881; J0171; J0690; J2250; J2704; J2795; J3010

== ENCOUNTER → 2023-08-19 06:05 | Outpatient (BNV) | payer OTHER, SELFPAY | PROVIDERS: PCP Internal Medicine; Visit Provider Orthopaedic Surgery | DX: S83.231A Complex tear of medial meniscus, current injury, right knee, initial encounter (principal); M17.11 Unilateral primary osteoarthritis, right knee | CPT/HCPCS: 29881 ==

== ENCOUNTER 2023-08-25 11:14 | Outpatient (REF) | payer OTHER, SELFPAY | END 2023-08-25 11:15 | disposition home or self-care (01) | LOC: HO.LNP 11:14 | PROVIDERS: PCP Internal Medicine; Visit Provider Obstetrics & Gynecology | DX: N93.9 Abnormal uterine and vaginal bleeding, unspecified (principal); Z32.02 Encounter for pregnancy test, result negative | CPT/HCPCS: 58100; 81025; 88305 ==

== ENCOUNTER 2023-08-25 11:14 | Outpatient (AMB) | payer OTHER, SELFPAY ==
--- NOTE | 2023-08-25 11:21 | A.OFFVIS_ITS ---
Intake Vital Signs 08/25/23 11:32 Height 5 ft 3 in Weight 124 lb BMI 22.0 BP 110/66 Intake Visit Reasons: EMB Biopsy/Ultrasound results Dye Reel Operator Helper Required: No Information Interpreted: non-clinical & clinical Photo Booth Operator: Photo Booth Operator Present Accompanied by: Self / Same As Patient Allergies tramadol [TRAMADOL] Allergy (Severe, Verified 08/19/23 06:11) SEIZURES, epilepsy HPI HPI Comments History of Present Illness Details Presenting for EMB [facility] Medical History Depression GERD (gastroesophageal reflux disease) Hepatitis C Tobacco abuse Coccyx pain Encounter for routine adult physical exam with abnormal findings Elevated blood pressure reading LFT elevation Epilepsy Iron deficiency Surgical History Hx of appendectomy Hx of dilation and curettage Hx of tubal ligation Hx of craniotomy Family History Father Heart attack Brother Testicular cancer Mother No problems noted. Paternal Aunt Lung cancer Bladder cancer Family/Other Brain cancer Stroke Social History Housing: Apartment Alcohol intake: former Year quit: 2020 Patient Tobacco Use Status: Former Tobacco user Quit Date: 07/2023 Cigarette Packs Per Day: 1 Cigarettes Per Day: 6 e-Cigarette/Vaping Use: Never Used service: No Current occupational status: unemployed Sexual orientation: Straight/Heterosexual Gender identity: Female Cognitive needs: No Hearing needs: No Vision needs: No Review of Systems Const All systems reviewed & are unremarkable except as noted in HPI and below Reports as per HPI and Reports no additional complaints GI Reports no additional complaints Reports no additional complaints Physical Exam Vital Signs: Last Vital Signs BP 110/66 08/25/23 11:32 BMI result Body Mass Index 22.0 Office Procedures Endometrial Biopsy Details: The patient was counseled regarding the indication and benefits of endometrial sampling to rule out endometrial pathology including not limited to endometrial hyperplasia or endometrial cancer and others; The alternatives (Either do nothing vs. hysteroscopy D&C) & the risks were discussed with the patient including but not limited: pain, uterine perforation, bleeding, infection, possible injury to bladder, bowel, ureter, possible need for blood transfusion with all its possible risks. The patient verbalized understanding all questions answered and signed consent. The patient was placed into the dorsal lithotomy position; a speculum was inserted in the vagina. Using aseptic technique for the procedure, the cervix was cleansed with Betadine. The anterior lip of the cervix was grasped with a single tooth tenaculum. The uterus was sounded to 7 cm with a 4 mm Pipelle was used. Tissues samples were obtained and placed in formalin, in a patient labeled container and sent to the pathology department. At the end of the procedure, there was minimal bleeding noted The patient tolerated the procedure well and was discharged in good condition with the following instructions: Nothing in the vagina until the bleeding stops. No sex until the bleeding stops, to call if any of the following occurs: fever (>100.4), flu-like symptoms, abdominal pain, heavy bleeding, four smelling vaginal discharge. The patient was instructed to schedule a Follow up appointment in 2 weeks to discuss pathology results of the biopsy and treatment options. This note was generated with a voice recognition program. Some errors may have been overlooked during the review of this note. Sometimes these errors may affect the content or meaning of a given sentence. [id number] Biopsy Results AMB Test Urine AMB Test Urine Negative Last Edit by Lupe Mayes CMA on 11:35 Results Reviewed Results Reviewed: Laboratory Last Values [facility]st Clinic Negative 08/25/23 11:35 Assessment & Plan Assessment & Plan (1) Abnormal uterine bleeding: Code(s): N93.9 - Abnormal uterine and vaginal bleeding, unspecified Plan: EMB done, see procedure note Orders: Orders AMB HCG Urine Test Today Z32.02 - Encounter for test, result negative AMB Endometrial Biopsy Today N93.9 - Abnormal uterine and vaginal bleeding, unspecified Coding Level of Care Code Procedure Only Diagnoses Abnormal uterine bleeding N93.9 CPT Codes Endometrial Biopsy - CPT: 93647-[id number] Biopsy ([id number])
[2023-08-25 11:32] VITALS: BP 110/66; BMI 22.0
== END 2023-08-25 11:48 | disposition home or self-care (01) ==
PROVIDERS: PCP Internal Medicine; Visit Provider Obstetrics & Gynecology
DX: N93.9 Abnormal uterine and vaginal bleeding, unspecified (principal); Z32.02 Encounter for pregnancy test, result negative
CPT/HCPCS: 58100

== ENCOUNTER 2023-08-29 10:43 | Outpatient (REF) | payer OTHER, SELFPAY ==
--- NOTE | ~2023-08-29 | MM_ITS ---
EXAMINATION: MM SCREENING DIGITAL BREAST TOMOSYNTHESIS, BILATERAL CLINICAL INFORMATION: Screening. Asymptomatic. COMPARISON: Mammography: There are no prior mammograms for comparison. TECHNIQUE: Digital breast tomosynthesis is performed in both the craniocaudal and mediolateral oblique views along with computer-aided detection (CAD). Synthesized 2D images are generated from the tomosynthesis. FINDINGS: The breasts are heterogeneously dense, which may obscure small masses (ACR BI-RADS breast composition Category c). There are no significant masses, abnormal calcifications, or other abnormalities. MM/MM tomosynthesis screening BI IMPRESSION: No mammographic evidence of malignancy. ASSESSMENT: BI-RADS BI-RADS 1 - Negative RECOMMENDATION: Routine annual mammography screening. 1 year F/U This examination should not preclude the clinical evaluation of a suspicious palpable abnormality. This patient's information was entered into a reminder system with a target due date for their next mammogram.
== END 2023-08-29 10:44 | disposition home or self-care (01) ==
LOC: HO.MAMMO 10:43
PROVIDERS: PCP Internal Medicine; Visit Provider Obstetrics & Gynecology
DX: Z12.31 Encounter for screening mammogram for malignant neoplasm of breast (principal)
CPT/HCPCS: 77063; 77067

== ENCOUNTER → 2023-08-29 10:45 | Outpatient (BNV) | payer OTHER, SELFPAY | PROVIDERS: PCP Internal Medicine; Visit Provider Radiology Diagnostic Radiology | DX: Z12.31 Encounter for screening mammogram for malignant neoplasm of breast (principal) | CPT/HCPCS: 77063; 77067 ==

== ENCOUNTER 2023-09-04 08:57 | Outpatient (AMB) | payer OTHER, SELFPAY ==
--- NOTE | 2023-09-04 09:02 | MHC.OFFVIS ---
Intake Vital Signs 09/04/23 09:04 Height 5 ft 3 in Weight 119 lb BMI 21.1 Intake Visit Reasons: PO RT Knee 08/19/23 NE Intake Note: Susan is a 43 year old female who presents today for a post op appointment s/p RT Knee 08/19/23 NE. Patient reports she is doing well, however she tends to have behind her thigh and knee. She finds relief with using the RIZWAN bandage. Allergies tramadol [TRAMADOL] Allergy (Severe, Verified 09/04/23 09:04) SEIZURES, epilepsy HPI PO RT Knee 08/19/23 NE HPI Details 43-year-old female who presents in the office today 16 days status post right knee partial medial meniscectomy with chondroplasty, which was performed on 08/19/[address] Tamez. While in the office today she reports she is doing well. However, she reports pain behind her thigh and knee. Confirms relief of pain with the use of an RIZWAN bandage. [facility] Medical History Depression GERD (gastroesophageal reflux disease) Hepatitis C Tobacco abuse Coccyx pain Encounter for routine adult physical exam with abnormal findings Elevated blood pressure reading LFT elevation Epilepsy Iron deficiency Surgical History Hx of appendectomy Hx of dilation and curettage Hx of tubal ligation Hx of craniotomy Family History Father Heart attack Brother Testicular cancer Mother No problems noted. Paternal Aunt Lung cancer Bladder cancer Family/Other Brain cancer Stroke Social History Housing: Apartment Alcohol intake: former Year quit: 2020 Patient Tobacco Use Status: Former Tobacco user Quit Date: 07/2023 Cigarette Packs Per Day: 1 Cigarettes Per Day: 6 e-Cigarette/Vaping Use: Never Used service: No Current occupational status: unemployed Sexual orientation: Straight/Heterosexual Gender identity: Female Cognitive needs: No Hearing needs: No Vision needs: No Review of Systems Const All systems reviewed & are unremarkable except as noted in HPI and below Physical Exam Vital Signs: BMI result Body Mass Index 21.1 Const General: cooperative, healthy appearing and no acute distress Resp Effort & Inspection: normal respiratory effort and able to speak in complete sentences Cardio Rate: regular rate Peripheral pulses: Peripheral pulses 2+ throughout GI Palpation (GI): Soft to palpation Skin Lesions: no lesions Rashes: no rashes Extrem Other: Right knee: Incision site is clean, dry, and intact. No surrounding erythema or drainage. No signs of infection. Tenderness to palpation over the medial and lateral joint lines. ROM is 0-120 degrees. NVI. Assessment & Plan Assessment & Plan (1) Status post arthroscopy of right knee: Onset Date: ~08/19/23 Comment: Right knee partial medial meniscectomy with chondroplasty; NE Code(s): Z98.890 - Other specified postprocedural states Plan Ms. Cartagena is a 43-year-old female who presents in the office today 16 days status post right knee partial medial meniscectomy with chondroplasty, which was performed on 08/19/[address] Tamez. While in the office today she reports she is doing well. However, she reports pain behind her thigh and knee. Confirms relief of pain with the use of an RIZWAN bandage. Patient was given a genumed knee brace, off the shelf, while in the office today. She was offered physical therapy due to her reporting she still has residual pain, but declined to attend at this time. Follow up will be PRN, or sooner if needed. Patient Instructions: Scribed by Tarsha Hilario biomedical service engineer, for Alia Major PA-C on 09/04/2023 at 9:01 am, EST. Coding Level of Care Code Global (58269) Diagnoses Status post arthroscopy of right knee Z98.890
[2023-09-04 09:04] VITALS: BMI 21.1
== END 2023-09-04 09:31 | disposition home or self-care (01) ==
PROVIDERS: PCP Internal Medicine; Visit Provider Physician Assistant
DX: Z98.890 Other specified postprocedural states (principal)
CPT/HCPCS: 99024

== ENCOUNTER → 2023-09-04 08:57 | Outpatient (BNVA) | payer OTHER, SELFPAY | PROVIDERS: PCP Internal Medicine; Visit Provider Physician Assistant | DX: Z47.89 Encounter for other orthopedic aftercare (principal); Z98.890 Other specified postprocedural states | CPT/HCPCS: 99212 ==

== ENCOUNTER 2023-09-29 09:40 | Outpatient (AMB) | payer OTHER, SELFPAY ==
--- NOTE | 2023-09-29 09:40 | A.OFFVIS_ITS ---
Intake Visit Reasons: EMB Results Allergies tramadol [TRAMADOL] Allergy (Severe, Verified 09/04/23 09:04) SEIZURES, epilepsy HPI Comments Details: The patient schedule a telehealth visit for follow-up to discuss the results of her abnormal uterine bleeding workup and options of treatment. The following workup was done.: H&H= 13.6/40.5 TSH, prolactin, hCG, GC and chlamydia were negative. Endometrial biopsy pathology showed benign late secretory endometrium with no evidence of hyperplasia and/or malignancy. Co testing was done in 11/11 was negative. Mammogram was BI-RADS 1. Pelvic ultrasound showed the following: The uterus measures 8.2 x 3.5 x 5.1 cm in longitudinal by AP by transverse dimension. The endometrial stripe measures 1.2 cm. Stable 1.2 cm fundal fibroid (previously 1.4 cm). Nabothian cysts demonstrated within the cervix. The left ovary measures approximately 1.7 x 0.7 x 1.2 cm and is normal. The right ovary was not clearly visualized. There are no abnormal adnexal masses. There is no free fluid in the pelvis. FORMERLY [facility], [facility] Medical History Depression GERD (gastroesophageal reflux disease) Hepatitis C Tobacco abuse Coccyx pain Encounter for routine adult physical exam with abnormal findings Elevated blood pressure reading LFT elevation Epilepsy Iron deficiency Surgical History Hx of appendectomy Hx of dilation and curettage Hx of tubal ligation Hx of craniotomy Family History Father Heart attack Brother Testicular cancer Mother No problems noted. Paternal Aunt Lung cancer Bladder cancer Family/Other Brain cancer Stroke Social History Housing: Apartment Alcohol intake: former Year quit: 2020 Patient Tobacco Use Status: Former Tobacco user Quit Date: 07/2023 Cigarette Packs Per Day: 1 Cigarettes Per Day: 6 e-Cigarette/Vaping Use: Never Used service: No Current occupational status: unemployed Sexual orientation: Straight/Heterosexual Gender identity: Female Cognitive needs: No Hearing needs: No Vision needs: No Review of Systems Const All systems reviewed & are unremarkable except as noted in HPI and below Reports as per HPI and Reports no additional complaints GI Reports no additional complaints Reports no additional complaints Telehealth Telehealth Telehealth Platform: Telephone Location of provider rendering services: practice address Location of patient: address on file Patient Identification confirmed using: Name, : Yes Telehealth method: video Patient verbally consented to treatment: Yes Patient verbally consented to billing insurance company: Yes Patient informed of any privacy concerns related to visit: Yes Assessment & Plan Assessment & Plan (1) Abnormal uterine bleeding: Code(s): N93.9 - Abnormal uterine and vaginal bleeding, unspecified Category: Medical Plan: Discussed with the patient the results of the work up done and options of treatment including Lysteda, control pills, Mirena IUD, endometrial ablation and hysterectomy. All pros, cons, risks and benefits if each option was discussed with the patient and the patient decided to go ahead with Mirena IUD so a more detailed discussion about it was conducted including mechanism of action, risks (uterine perforation, infection, injury to bladder, bowel, displacement, and others) benefits (hypo menorrhea, amenorrhea, ...). GC/CT were taken and the patient was instructed to schedule Mirena IUD insertion on day 1- 5 of next cycle . All questions answered, the patient verbalized understanding (2) Uterine myoma: Code(s): D25.9 - Leiomyoma of uterus, unspecified Category: Medical Plan: Discussed with the patient the findings on pelvic ultrasound & the risk of myosarcoma; discussed with the patient the options of treatment including expectant management versus hysterectomy; the pros and cons, risks benefits of each approach were discussed with the patient including the fact that in cases of myosarcoma, surgical treatment can lead to early diagnosis and positively affects the prognosis; after further discussion, the patient decided to proceed with expectant management. Will repeat pelvic ultrasound periodically. Instructions given to patient to call in case any of the following occurs: pressure symptoms, abnormal uterine bleeding, pelvic pain; and to schedule an ultrasound follow-up appointment in 9 months . All questions answered, the patient verbalized understanding and agreed with the plan . I spent a total of 20 minutes reviewing the chart, talking to the patient via video and documenting in the medical record. Orders: Orders US pelvic and transvaginal 9 Months D25.9 - Leiomyoma of uterus, unspecified Coding Level of Care Code Tele Est Pt Level 1 (89347) Diagnoses Abnormal uterine bleeding N93.9 Uterine myoma D25.9
== END 2023-09-29 10:15 | disposition home or self-care (01) ==
LOC: HO.HWS 09:40
PROVIDERS: PCP Internal Medicine; Visit Provider Obstetrics & Gynecology
DX: N93.9 Abnormal uterine and vaginal bleeding, unspecified (principal); D25.9 Leiomyoma of uterus, unspecified
CPT/HCPCS: 99211

== ENCOUNTER → 2023-09-29 09:40 | Outpatient (BNVA) | payer OTHER, SELFPAY | PROVIDERS: PCP Internal Medicine; Visit Provider Obstetrics & Gynecology ==

== ENCOUNTER 2024-08-10 07:49 | Outpatient (AMB) | payer OTHER, SELFPAY ==
--- NOTE | 2024-08-10 07:49 | MHC.OFFVIS ---
Vital Signs 08/10/24 07:50 Height 5 ft 3 in Weight 120 lb BMI 21.3 Intake Visit Reasons: Ultra sound follow up Allergies tramadol [TRAMADOL] Allergy (Severe, Verified 09/04/23 09:04) SEIZURES, epilepsy HPI Comments Details: Presenting for follow-up, the patient is stating that her menstrual cycles have been regular and light no other complaints. Last ultrasound done a year ago showed 1.3 cm uterine myoma , follow-up ultrasound ordered but not done yet, no other symptoms PFSH Medical History Depression GERD (gastroesophageal reflux disease) Hepatitis C Tobacco abuse Coccyx pain Encounter for routine adult physical exam with abnormal findings Elevated blood pressure reading LFT elevation Epilepsy Iron deficiency Surgical History Hx of appendectomy Hx of dilation and curettage Hx of tubal ligation Hx of craniotomy Family History Father Heart attack Brother Testicular cancer Mother No problems noted. Paternal Aunt Lung cancer Bladder cancer Family/Other Brain cancer Stroke Social History Housing: Apartment Alcohol intake: former Year quit: 2020 Patient Tobacco Use Status: Former Tobacco user Cigarette Packs Per Day: 1 Cigarettes Per Day: 6 e-Cigarette/Vaping Use: Never Used service: No Current occupational status: unemployed Sexual orientation: Straight/Heterosexual Gender identity: Female Cognitive needs: No Hearing needs: No Vision needs: No Review of Systems Const All systems reviewed & are unremarkable except as noted in HPI and below Reports as per HPI and Reports no additional complaints GI Reports no additional complaints Reports no additional complaints Physical Exam Vital Signs: BMI result Body Mass Index 21.3 Assessment & Plan Assessment & Plan (1) Abnormal uterine bleeding: Comment: Resolved Code(s): N93.9 - Abnormal uterine and vaginal bleeding, unspecified Category: Medical Plan: Instructions given the patient to call in case abnormal uterine bleeding recurs , will treat accordingly (2) Uterine myoma: Code(s): D25.9 - Leiomyoma of uterus, unspecified Category: Medical Plan: Ultrasound ordered previously, instructions given the patient to schedule ultrasound follow-up appointment. All questions answered, the patient verbalized understanding Coding Level of Care Code Est Pt Level 3 (27832) Diagnoses Abnormal uterine bleeding N93.9 Uterine myoma D25.9
[2024-08-10 07:50] VITALS: BMI 21.3
== END 2024-08-10 08:15 | disposition home or self-care (01) ==
LOC: HO.HWS 07:49
PROVIDERS: PCP Internal Medicine; Visit Provider Obstetrics & Gynecology
DX: N93.9 Abnormal uterine and vaginal bleeding, unspecified (principal); D25.9 Leiomyoma of uterus, unspecified
CPT/HCPCS: 99213

== ENCOUNTER → 2024-08-10 07:49 | Outpatient (BNVA) | payer OTHER, SELFPAY | PROVIDERS: PCP Internal Medicine; Visit Provider Obstetrics & Gynecology | DX: N93.9 Abnormal uterine and vaginal bleeding, unspecified (principal); D25.9 Leiomyoma of uterus, unspecified | CPT/HCPCS: 99212 ==

== ENCOUNTER 2024-08-31 13:26 | Outpatient (REF) | payer OTHER, SELFPAY ==
--- NOTE | ~2024-08-31 | US_ITS ---
CLINICAL HISTORY: D25.9 - Leiomyoma of uterus, unspecified US pelvis transabdominal and transvaginal with color Doppler Comparison: US/SR - US PELVIC AND TRANSVAGINAL - 08/11/23 11:11 EDT Findings: Transabdominal scanning performed for overall anatomy. Transvaginal scanning performed for additional detail. LMP: July Anteverted uterus, normal size and echotexture, measuring 6.7 x 2.4 x 3.5 cm. Posterior fundal intramural fibroid measuring 10 x 8 x 12 mm previously measuring 12 x 10 x 11 mm. Well defined endometrium, measuring 2.0 mm in thickness. Normal trilaminar appearance of the endometrium. The right ovary measures, 2.3 x 2.1 x 2.3 cm. Incidental dominant follicle. Normal color Doppler. The left ovary measures, 1.5 x 1.6 x 1.3 cm. Normal sonographic appearance left ovary.. Normal color Doppler. No adnexal masses or fluid collections. No free fluid Impression: 1. Uterus normal size and position with a posterior intramural fundal fibroidrelatively stable. 2. Normal thickness endometrium with a normal trilaminar appearance. 3. Normal ovaries/adnexa This document has been electronically signed by: Omar Phillips MD on 09/01/2024 10:17:19
== END 2024-08-31 13:27 | disposition home or self-care (01) ==
LOC: HO.US 13:26
PROVIDERS: PCP Internal Medicine; Visit Provider Obstetrics & Gynecology
DX: D25.9 Leiomyoma of uterus, unspecified (principal)
CPT/HCPCS: 76830; 76856

== ENCOUNTER → 2024-08-31 13:29 | Outpatient (BNV) | payer OTHER, SELFPAY | PROVIDERS: PCP Internal Medicine; Visit Provider Radiology Diagnostic Radiology | DX: D25.9 Leiomyoma of uterus, unspecified (principal) | CPT/HCPCS: 76830; 76856 ==

== ENCOUNTER 2024-09-14 08:27 | Outpatient (AMB) | payer OTHER, SELFPAY ==
--- NOTE | 2024-09-14 08:36 | A.OFFVIS_ITS ---
Intake Visit Reasons: Ultrasound Follow up Accompanied by: Self / Same As Patient Allergies tramadol [TRAMADOL] Allergy (Severe, Verified 09/14/24 08:37) SEIZURES, epilepsy HPI Comments Details: Presenting for ultrasound follow-up regarding myoma with no complaints, no abnormal vaginal bleeding, pelvic pain or pressure. Pelvic ultrasound done recently showed the following: LMP: July Anteverted uterus, normal size and echotexture, measuring 6.7 x 2.4 x 3.5 cm. Posterior fundal intramural fibroid measuring 10 x 8 x 12 mm previously measuring 12 x 10 x 11 mm. Well defined endometrium, measuring 2.0 mm in thickness. Normal trilaminar appearance of the endometrium. The right ovary measures, 2.3 x 2.1 x 2.3 cm. Incidental dominant follicle. Normal color Doppler. The left ovary measures, 1.5 x 1.6 x 1.3 cm. Normal sonographic appearance left ovary.. Normal color Doppler. No adnexal masses or fluid collections. No free fluid PFSH Medical History Depression GERD (gastroesophageal reflux disease) Hepatitis C Tobacco abuse Coccyx pain Encounter for routine adult physical exam with abnormal findings Elevated blood pressure reading LFT elevation Epilepsy Iron deficiency Surgical History Hx of appendectomy Hx of dilation and curettage Hx of tubal ligation Hx of craniotomy Family History Father Heart attack Brother Testicular cancer Mother No problems noted. Paternal Aunt Lung cancer Bladder cancer Family/Other Brain cancer Stroke Social History Housing: Apartment Alcohol intake: former Year quit: 2020 Patient Tobacco Use Status: Former Tobacco user Cigarette Packs Per Day: 1 Cigarettes Per Day: 6 e-Cigarette/Vaping Use: Never Used service: No Current occupational status: unemployed Sexual orientation: Straight/Heterosexual Gender identity: Female Cognitive needs: No Hearing needs: No Vision needs: No Review of Systems Const All systems reviewed & are unremarkable except as noted in HPI and below Reports as per HPI and Reports no additional complaints GI Reports no additional complaints Reports no additional complaints Assessment & Plan Assessment & Plan (1) Uterine myoma: Code(s): D25.9 - Leiomyoma of uterus, unspecified Category: Medical Plan: Discussed with the patient the findings on pelvic ultrasound & the risk of myosarcoma; in addition reviewed with the patient that malignancy and pre malign jeffery cannot be ruled out without hysterectomy for pathological evaluation ; furthermore, explained to the patient the limitation of pelvic ultrasound and endometrial biopsy in the setting. Discussed with the patient the options of treatment including expectant management versus hysterectomy; the pros and cons, risks benefits of each approach were discussed with the patient including the fact that in cases of myosarcoma, surgical treatment can lead to early diagnosis and positively affects the prognosis; after further discussion, the patient decided to proceed with expectant management. Will repeat pelvic ultrasound periodically. Instructions given to patient to call in case any of the following occurs: pressure symptoms, abnormal uterine bleeding, pelvic pain; and to schedule a 12 months pelvic ultrasound (order placed) and a follow-up appointment . All questions answered, the patient verbalized understanding and agreed with the plan . Orders: Orders US pelvic and transvaginal 12 Months D25.9 - Leiomyoma of uterus, unspecified Coding Level of Care Code Est Pt Level 3 (26401) Diagnoses Uterine myoma D25.9
== END 2024-09-14 09:07 | disposition home or self-care (01) ==
LOC: HO.HWS 08:28
PROVIDERS: PCP Internal Medicine; Visit Provider Obstetrics & Gynecology
DX: D25.9 Leiomyoma of uterus, unspecified (principal)
CPT/HCPCS: 99213

== ENCOUNTER → 2024-09-14 08:27 | Outpatient (BNVA) | payer OTHER, SELFPAY | PROVIDERS: PCP Internal Medicine; Visit Provider Obstetrics & Gynecology | DX: D25.9 Leiomyoma of uterus, unspecified (principal) | CPT/HCPCS: 99212 ==

== ENCOUNTER 2025-01-19 08:57 | Outpatient (AMB) | payer OTHER, SELFPAY ==
--- OUTSIDE RECORDS SUMMARY | 2024-11-12 17:30 | XMS_ITS ---
Author Organization Sim[facility] Parker [place] Address [address] [place], [place] [id number] Care Team Providers Care Warehouse Delivery Driver Name Role Phone Simba Parker Primary Care Provider Migration, Provider Unavailable Unavailable Allergies Allergen (clinical drug ingredient) Drug/Non Drug Allergy documented on EMR Reaction Allergy Type Onset Date Status tramadol traMADol Unknown Drug Allergy Active REASON FOR VISIT Multum To Medispan Conversion Encounter Medications Medication SIG (Take, Route, Frequency, Duration) Notes Start Date End Date Status Reprexain 5 MG-200 MG 1 TAB(S) ORALLY EVERY 6 HOURS PRN *Please review and pick correct strength-formulation from Medispan options. If intended option is not shown, discontinue and re-order from Quick Search* 03/26/2011 Active LaMICtal *Please review a nd pick correct strength-formulation from Medispan options. If intended option is not shown, discontinue and re-order from Quick Search* Active Trileptal 300 MG 2 tab(s) orally 2 times a day; Duration: 30 day(s) Active Topamax 200 MG 1 tab(s) orally 2 times a day; Duration: 30 day(s) Active Encounters Encounter Location [place] [address] [address] [place], [place] [id number] 11/12/2024 Provider Migration Pain, ankle 719.47 Assessments Encounter Date Diagnosis (ICD Code) Assessment Notes Treatment Notes Treatment Clinical Notes Section Notes 11/12/2024 Pain, ankle (ICD9-CM - 719.47) Plan Of Treatment Medication Medication Name Sig Start Date Stop Date Notes Reprexain 5 MG-200 MG 1 TAB(S) ORALLY EVERY 6 HOURS PRN 03/26/2011 *Please review and p ick correct strength-formulation from Medispan options. If intended option is not shown, discontinue and re-order from Quick Search* Progress Notes * Don BONNERneDOB:1979 (45 yo F)Acc No.[id number]:11/12/2024 Patient: Susan BARRIENTOS Provider: :1980 A ge:44 Y S ex:Female Date:11/12/2024 Address:[address] [place] [address] Pcp:Simba Parker Subjective: * Chief Complaints: * 1 . Multum To Medispan Conversion Encounter. * Medical History: * Medications: T aking LaMICtal , Notes to Pharmacist: *Please review and pick correct strength-formulation from Medispan options. If intended option is not shown, discontinue and re-order from Quick Search*, Taking Topamax 200 MG Tablet 1 tab(s) orally 2 times a day , Taking Trileptal 300 MG Tablet 2 tab(s) orally 2 times a day * Allergies: t raMADol. Objective: * Vitals: Assessment: * Assessment: 1. P ain, ankle - 719.47 (Primary) Plan: * Treatment: * * Electronic signature of Prov ider Migration on 01/19/2025 at 08:47 AM CDT Sign off status: Pending * Provider: Date: 11/12/2024 Generated for Mook santos/Diane/Alysaitting on: 01/19/2025 08:47 AM CDT
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
--- OUTSIDE RECORDS SUMMARY | 2025-01-19 09:47 | XMS_ITS | Patient Health Record ---
Author Organization Simba Parker [facility] [place] Address [address] [place], [place] [id number] Care Team Providers Care Milieu Coordinator Name Role Phone Simba Parker Primary Care Provider [phone] Migration, Provider Unavailable Unavailable Allergies Allergen (clinical drug ingredient) Drug/Non Drug Allergy documented on EMR Reaction Allergy Type Onset Date Status tramadol traMADol Unknown Drug Allergy Active Reason For Referral No Information Medications Medication SIG (Take, Route, Frequency, Duration) Notes Start Date End Date Status Reprexain 5 MG-200 MG 1 TAB(S) ORALLY EVERY 6 HOURS PRN *Please review and pick correct strength-formulation from [place] [employer] options. If intended option is not shown, [...] Date [place] [address] [place], [place] [phone] 11/12/2024 Provider Migration Pain, ankle 719.47 Assessments Encounter Date Diagnosis (ICD Code) Assessment Notes Treatment Notes Treatment Clinical Notes Section Notes 11/12/2024 Pain, ankle (ICD9-CM - 719.47) Plan Of Treatment Pending Test Test Name Order Date Ankle 3 views - Left 03/26/2011 Medical (General) History Medical History History ICD Code seizures Surgical History Surgery Date(Month/Year) appendectomy blood clot removal from brain
== END 2025-01-19 09:12 | disposition home or self-care (01) ==
LOC: HO.HSM 08:57
PROVIDERS: PCP Internal Medicine; Visit Provider Registered Nurse
DX: G40.909 Epilepsy, unspecified, not intractable, without status epilepticus (principal); G47.00 Insomnia, unspecified
CPT/HCPCS: 99214

== ENCOUNTER → 2025-01-19 08:57 | Outpatient (BNVA) | payer OTHER, SELFPAY | PROVIDERS: PCP Internal Medicine; Visit Provider Registered Nurse | DX: G40.909 Epilepsy, unspecified, not intractable, without status epilepticus (principal); G47.00 Insomnia, unspecified; Z79.899 Other long term (current) drug therapy | CPT/HCPCS: 99212 ==

== ENCOUNTER 2025-04-18 09:05 | Outpatient (AMB) | payer OTHER, SELFPAY ==
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
== END 2025-04-18 09:17 | disposition home or self-care (01) ==
LOC: HO.HSM 09:06
PROVIDERS: PCP Internal Medicine; Visit Provider Registered Nurse
DX: G40.909 Epilepsy, unspecified, not intractable, without status epilepticus (principal); G47.00 Insomnia, unspecified
CPT/HCPCS: 99214

== ENCOUNTER → 2025-04-18 09:05 | Outpatient (BNVA) | payer OTHER, SELFPAY | PROVIDERS: PCP Internal Medicine; Visit Provider Registered Nurse | DX: G40.909 Epilepsy, unspecified, not intractable, without status epilepticus (principal); G47.00 Insomnia, unspecified; Z79.899 Other long term (current) drug therapy | CPT/HCPCS: 99212 ==